=== PATIENT | female | born 1990 ===

== ENCOUNTER → 2022-10-11 | Outpatient (CLI) | payer MEDICAID | END | disposition home or self-care (01) | LOC: Rad HDHVI 14:52 | PROVIDERS: ATTEND Internal Medicine Cardiovascular Disease | DX: R00.2 Palpitations (principal); R06.02 Shortness of breath | CPT/HCPCS: 93306 ==

== ENCOUNTER → 2022-10-13 | Outpatient (CLI) | payer MEDICAID ==
[~2022-10-13] VITALS: Ht 160 cm; Wt 61.2 kg
== END | disposition home or self-care (01) ==
LOC: Rad HDHVI 08:08
PROVIDERS: ATTEND Internal Medicine Cardiovascular Disease
DX: I34.0 Nonrheumatic mitral (valve) insufficiency (principal); R06.02 Shortness of breath; R07.89 Other chest pain; R00.2 Palpitations; R42 Dizziness and giddiness; R60.9 Edema, unspecified
CPT/HCPCS: 78452; 93017; 96374; A9500